=== PATIENT | female | born 1995 | race Caucasian/White ===

== ENCOUNTER 2019-03-17 07:02 | Emergency (ER) | payer BC ==
[~2019-03-17] VITALS: Ht 160 cm; Wt 65.6 kg
[~2019-03-17 07:02] MED LIST: IBUP-1542 PO
[2019-03-17 07:06] VITALS: Ht 160 cm; Wt 65.6 kg
[2019-03-17] MEDS ORDERED: morphine 4 MG/ML VIAL IV STA (07:27)
[2019-03-17] MEDS ORDERED: ONDANSETRON 4 MG INJ IV STA (07:27)
[2019-03-17] MEDS ORDERED: SOD CHLORIDE 0.9% 1,000 ML IV STA (07:27)
[2019-03-17 09:16] VITALS: BP 129/76; PULSE 64; RESP 18
== END 2019-03-17 09:18 | disposition home or self-care (01) ==
LOC: FTE 07:02
DX: R10.2 Pelvic and perineal pain (principal)
CPT/HCPCS: 36415; 76830; 76856; 80053; 81003; 81025; 85025; 96361; 96374; 96375; 99285; J2270; J2405; J7030